=== PATIENT | male | born 1995 | race Caucasian/White ===

== ENCOUNTER 2023-11-25 13:13 | Emergency (ER) | payer OTHER ==
--- NOTE | 2023-11-25 14:25 | ED ---
General Adult HPI - General Chief complaint: Extremity Problem,Nontraumatic Stated complaint: Pain and numbness on L side Time Seen by Provider: 11/25/23 14:00 Source: patient, RN notes reviewed, old records reviewed Mode of arrival: ambulatory Limitations: no limitations - History of Present Illness Initial comments: Patient is a 28-year-old male who presents from [place] complaining of left hip and buttock pain as well as lower back pain. No recent trauma. States he woke up yesterday with some pain and now it is worse. Seems to be primarily in the left buttock with radiation down the back of the left leg. Denies any saddle anesthesias. Denies any urinary or bowel incontinence or retention. Denies any lower extremity weakness. Primary complaint is pain. Presents for further evaluation at this time.Does endorse occasional numbness in the left toes. - Related Data Previous Rx's Medication Instructions Recorded Ibuprofen [Motrin] 600 mg PO Q6HR PRN 7 Days #28 tab 11/25/23 Lidocaine 5% Patch [Lidoderm 5% 1 patch TOPICAL DAILY PRN 14 Days 11/25/23 Patch] #14 patch Allergies Allergy/AdvReac Type Severity Reaction Status Date / Time No Known Allergies Allergy Verified 11/25/23 13:21 Review of Systems ROS Statement: Those systems with pertinent positive or pertinent negative responses have been documented in the HPI. Review of Systems: CONST: Denies fever EYES: Denies blurry vision ENT: Denies nasal congestion C/V: Denies Chest pain RESP: Denies shortness of breath GI: Denies abdominal pain : Denies dysuria SKIN: Denies rash. MSK: Endorses lower back pain, left buttock pain. NEURO: Denies headache ROS Other: All systems not noted in ROS Statement are negative. Past Medical History Past Medical History: No Reported History History of Any Multi-Drug Resistant Organisms: None Reported Past Surgical History: No Surgical Hx Reported Past Psychological History: Anxiety Smoking Status: Current every day smoker Past Alcohol Use History: None Reported Past Drug Use History: Heroin General Exam - General Exam Comments Initial Comments: General: Appears in no acute distress. HEAD: Normal with no signs of head trauma. EYES: EOMI. ENT: Hearing grossly intact. RESPIRATORY: No respiratory distress. C/V: Regular rate and rhythm. ABD: Abdomen is nondistended. EXT: No obvious deformity. Tenderness to palpation of the left lower lumbar paraspinal muscles. Neurovascular intact. No midline lumbar spine, thoracic, cervical spine tenderness to palpation. SKIN: No rashes or lesions observed on exposed skin. NEURO: Alert and oriented. Limitations: no limitations Course Vital Signs 11/25/23 11/25/23 13:15 17:03 Temperature 97.9 F 98 F Pulse Rate 99 97 Respiratory 18 20 Rate Blood Pressure 108/75 146/79 O2 Sat by Pulse 98 97 Oximetry Medical Decision Making - Medical Decision Making Was pt. sent in by a medical professional or institution (, PA, CARDIOLOGIST, urgent care, hospital, or [facility]...) When possible be specific @ -No Did you speak to anyone other than the patient for history (EMS, parent, family, police, friend...)? What history was obtained from this source @ -No Did you review nursing and triage notes (agree or disagree)? Why? @ -I reviewed and agree with nursing and triage notes Were old charts reviewed (outside hosp., previous admission, EMS record, old EKG, old radiological studies, urgent care reports/EKG's, [facility] records)? Report findings @ -Old charts reviewed Differential Diagnosis (chest pain, altered mental status, abdominal pain women, abdominal pain men, vaginal bleeding, weakness, fever, dyspnea, syncope, headache, dizziness, GI bleed, back pain, seizure, CVA, palpatations, mental health, musculoskeletal)? @ -Differential Musculoskeletal Muscular strain, contusion, ligament sprain, fracture, arthritis, septic arthritis, bursitis, cellulitis, muscle spasm, nerve compression, DVT, arterial occlusion, herpes zoster, electrolyte abnormality, tumor.... This is not meant to be in all inclusive list EKG interpreted by me (3pts min.). @ -As above X-rays interpreted by me (1pt min.). @ -None done CT interpreted by me (1pt min.). @ - Lumbar spine CT shows multilevel disc bulging as well as foraminal encroachment at L4-L5. This is seen on the left. This does align with the patient's symptoms. U/S interpreted by me (1pt. min.). @ -None done What testing was considered but not performed or refused? (CT, X-rays, U/S, labs)? Why? @ -None What meds were considered but not given or refused? Why? @ -None Did you discuss the management of the patient with other professionals (professionals i.e. , PA, CARDIOLOGIST, lab, RT, psych nurse, community mental health social worker, computer numerical control grinder, teacher, water resources technical officer, registered nurse hh case manager)? Give summary @ -No Was smoking cessation discussed for >3mins.? @ -No Was critical care preformed (if so, how long)? @ -No Were there social determinants of health that impacted care today? How? (Homelessness, low income, unemployed, alcoholism, drug addiction, transportation, low edu. Level, literacy, decrease access to med. care, halfway, rehab)? @ -No Was there de-escalation of care discussed even if they declined (Discuss DNR or withdrawal of care, Hospice)? DNR status @ -No What co-morbidities impacted this encounter? (DM, HTN, Smoking, COPD, CAD, Cancer, CVA, ARF, Chemo, Hep., AIDS, mental health diagnosis, sleep apnea, morbid obesity)? @ -None Was patient admitted / discharged? Hospital course, mention meds given and route, prescriptions, significant lab abnormalities, going to OR and other pertinent info. @ -Based on the patient's presentation and physical exam, presents emergency department complaining of lower back pain and what appears to be lumbar spinal radiculopathy. No red flag symptoms to suggest cauda equina syndrome at this time. No concern for cauda equina syndrome. I did recommend we obtain CT imaging and he will be given ibuprofen and lidocaine patch for analgesia meds. Patient was in agreement this plan. Vital signs within acceptable limits. Lumbar spine CT shows multilevel disc bulging as well as foraminal encroachment at L4-L5. This is seen on the left. This does align with the patient's symptoms. Patient's imaging eventually returned and was discharged home by Dr. Lowery who followed up on the imaging. Strict return precautions were discussed. Undiagnosed new problem with uncertain prognosis? @ -No Drug Therapy requiring intensive monitoring for toxicity (Heparin, Nitro, Insulin, Cardizem)? @ -No Were any procedures done? @ -No Diagnosis/symptom? @ -Lumbar radiculopathy, sciatica Acute, or Chronic, or Acute on Chronic? @ -Acute Uncomplicated (without systemic symptoms) or Complicated (systemic symptoms)? @ -Complicated Side effects of treatment? @ -None Exacerbation, Progression, or Severe Exacerbation] @ -No Poses a threat to life or bodily function? @ -Unlikely Disposition Clinical Impression: Lumbar radiculopathy, Sciatica Disposition: HOME SELF-CARE Condition: Good Prescriptions: Lidocaine 5% Patch [Lidoderm 5% Patch] 1 patch TOPICAL DAILY PRN 14 Days #14 patch PRN Reason: Pain Ibuprofen [Motrin] 600 mg PO Q6HR PRN 7 Days #28 tab PRN Reason: Pain Is patient prescribed a controlled substance at d/c from ED?: No Referrals: None,Stated [Primary Care Provider] - 1-2 days Time of Disposition: 17:00
[2023-11-25] MEDS: IBUPROFEN 800 MG TAB PO STA (14:28)
[2023-11-25] MEDS: LIDOCAINE 4% PATCH TOPICAL STA (14:29)
--- NOTE | 2023-11-25 16:51 | CT ---
EXAMINATION TYPE: CT lumbar spine wo con CT DLP: 945 mGycm, Automated exposure control for dose reduction was used. DATE OF EXAM: 11/25/2023 2:45 PM COMPARISON: . CLINICAL INDICATION:Male, 28 years old with history of back pain, radiculopathy; PHH, back pain, radi culopathy TECHNIQUE: Multiple axial images were obtained from the midportion of T11 through the sacroiliac ilana nts. Soft tissue and bone windows in coronal and sagittal planes were obtained and reviewed. 3-D ref ormats of the bones were created on a separate workstation and submitted for review. Contrast used: mL of , (None, if empty). Oral contrast used: (None, if empty). FINDINGS: Alignment: There are 5 lumbar type vertebral bodies within normal alignment. No significant degenera tive disc disease or endplate spondylosis. Bone: Normal ossification. Normal vertebral body height. No disc height loss. Discs: T12-L1: No spinal canal or neural foraminal stenosis is identified. L1-L2: No spinal canal or neural foraminal stenosis is identified. L2-L3: Mild diffuse disc bulge without significant spinal canal or neural foraminal stenosis. L3-L4: Mild diffuse disc bulge without significant spinal canal or neural foraminal stenosis. L4-L5: Mild diffuse disc bulge without significant spinal canal or right neural foraminal stenosis. Moderate L4-5 neural foraminal narrowing due to facet joint and spondylosis of the inferior endplate of L4. L5-S1: Mild diffuse disc bulge without significant spinal canal or neural foraminal stenosis. Other: None IMPRESSION: 1. Diffuse disc bulges. Left neural foraminal encroachment at L4-L5 of the bony facet joint
[2023-11-25 17:32] VITALS: BP 146/79; PULSE 97; RESP 20; TEMP 98
== END 2023-11-25 17:04 | disposition home or self-care (01) ==
LOC: EC 13:13
DX: M51.16 Intervertebral disc disorders with radiculopathy, lumbar region (principal); F17.200 Nicotine dependence, unspecified, uncomplicated
CPT/HCPCS: 72131; 99283